=== PATIENT | male | born 1970 | race Caucasian/White ===

== ENCOUNTER 2017-06-04 08:20 | Emergency (ER) | payer OTHER ==
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
[2017-06-04 09:04] LABS: BASOPHIL # 0.1 K/uL (0.0-0.2); BASOPHIL % 1.2 %; EOSINOPHIL # 0.2 K/uL (0.0-0.5); EOSINOPHIL % 3.2 %; HEMATOCRIT 45.5 % (37.0-53.0); HEMOGLOBIN 16.2 g/dL (12.0-17.0); IMMATURE GRANULOCYTE % 0.2 %; LYMPHOCYTE # 1.5 K/uL (0.8-4.0); LYMPHOCYTE % 30.4 %; MCH 31.2 pg (27.0-34.0); MCHC 35.6 gm/dL (32.0-36.5); MCV 87.5 fl (83.0-98.0); MONOCYTE # 0.5 K/uL (0.0-1.0); MONOCYTE % 9.3 %; MPV 8.6 fl (9.4-12.4); NEUTROPHIL # (ANC) 2.8 K/uL (1.4-9.0); NEUTROPHIL % 55.7 %; NRBC % 0 /100WBC (0-0.00); PLATELET COUNT 267 K/uL (150-450); RDW-CV 11.5 % (11.9-14.6)
[2017-06-04 09:19] LABS: ALBUMIN 3.8 gm/dL (3.5-5.0); ANION GAP 10.9 (10.0-19.0); CALCIUM 9.9 mg/dL (8.5-10.5); CREATININE 1.1 mg/dL (0.6-1.3); POTASSIUM 4.9 mMol/L (3.7-5.1); TOTAL BILIRUBIN 0.8 mg/dL (0.0-1.5); TOTAL PROTEIN 7.4 g/dL (6.0-8.4)
== END 2017-06-04 10:27 | disposition disaster alternative care site (69) ==
LOC: GACC 08:20
PROVIDERS: Emergency Medicine
DX: R07.89 Other chest pain (principal); I48.91 Unspecified atrial fibrillation; M50.20 Other cervical disc displacement, unspecified cervical region; Z90.49 Acquired absence of other specified parts of digestive tract; Z79.1 Long term (current) use of non-steroidal anti-inflammatories (NSAID); V49.50XA Passenger injured in collision with unspecified motor vehicles in traffic accident, initial encounter; Y92.411 Interstate highway as the place of occurrence of the external cause
CPT/HCPCS: Q9967